=== PATIENT | female | born 1945 | race Caucasian/White ===

== ENCOUNTER 2023-08-03 14:31 | Emergency (ER) | payer MEDICARE ==
[~2023-08-03] VITALS: Ht 167.6 cm; Wt 58.2 kg
[~2023-08-03 14:31] MED LIST: APIX5TAB3 PO; DILT-91 PO; NO HOME MEDS
[2023-08-03 15:07] LABS: BASOPHILS # (AUTO) 0.1 X10'3 (0-0.2); BASOPHILS % (AUTO) 1.1 % (0-1); EOSINOPHILS % (AUTO) 0.8 % (0-6); HEMATOCRIT 41.3 % (35.0-45.0); HEMOGLOBIN 13.4 g/dl (12.0-16.0); LYMPHOCYTES # (AUTO) 1.2 X10'3 (1.1-4.8); LYMPHOCYTES % (AUTO) 23.4 % (21-51); MEAN CORPUSCULAR HEMOGLOBIN 29.9 PG (27.0-31.0); MEAN CORPUSCULAR HGB CONC 32.5 g/dL (33.0-36.5); MEAN PLATELET VOLUME 9.6 FL (7.4-10.4); MONOCYTES # (AUTO) 0.6 X10'3 (0-0.9); MONOCYTES % (AUTO) 11.9 % (2-12); NEUTROPHILS # (AUTO) 3.3 X10'3 (1.8-7.7); NEUTROPHILS % (AUTO) 62.8 % (42-75); PLATELET COUNT 185 X10'3 (140-440); RED BLOOD COUNT 4.48 X10'6 (4.20-5.60); WHITE BLOOD COUNT 5.2 X10'3 (4.5-11.0)
[2023-08-03 15:20] LABS: ALBUMIN 3.6 G/DL (3.4-5.0); ANION GAP 8 (8-16); BLOOD UREA NITROGEN 28 MG/DL (7-18); BUN/CREATININE RATIO 24.8 (10.0-20.0); CALCIUM 9.1 MG/DL (8.5-10.1); CHLORIDE 101 MMOL/L (99-107); CREATININE 1.13 MG/DL (0.40-0.90); GLUCOSE 97 MG/DL (70-104); POTASSIUM 4.6 MMOL/L (3.5-5.1); PRO BRAIN NATRIURETIC PEPTIDE 5456 PG/ML (0-450); SODIUM 138 MMOL/L (135-145); TOTAL CARBON DIOXIDE 29.1 MMOL/L (24-32); eCRCL 37 ML/MIN; eGFR 46 ML/MIN
[2023-08-03] MEDS ORDERED: diltiazem 5mg/ml 5ml inj. IV ONE (15:20)
[2023-08-03] MEDS: ketamine 50mg/5ml syringe IV ONE (16:41)
[2023-08-03] MEDS: propofol 10mg/ml 20ml vial IV ONE (16:41)
[2023-08-03 18:44] VITALS: BP 109/65; PULSE 50; RESP 19; TEMP 97.8; O2SAT 90
== END 2023-08-03 18:48 | disposition home or self-care (01) ==
LOC: ER 14:31
DX: I48.20 Chronic atrial fibrillation, unspecified (principal)
CPT/HCPCS: 36415; 71045; 80048; 83880; 84484; 85025; 92960; 93005; 99285; J7030; A4620

== ENCOUNTER 2023-09-03 12:05 | Inpatient (IN) | payer MEDICARE ==
[~2023-09-03] VITALS: Ht 165.1 cm; Wt 58.2 kg
[2023-09-03] VITALS (12 sets, daily range): BP systolic 115–146; BP diastolic 73–91; PULSE 71–103; RESP 14–19; TEMP 98–98.6; O2SAT 95–100
[2023-09-03 12:26] LABS: EOSINOPHILS # (AUTO) 0.1 X10'3 (0-0.9); EOSINOPHILS % (AUTO) 2.8 % (0-6); HEMATOCRIT 39.9 % (35.0-45.0); HEMOGLOBIN 13.1 g/dl (12.0-16.0); LYMPHOCYTES % (AUTO) 21.5 % (21-51); MEAN CORPUSCULAR HEMOGLOBIN 29.7 PG (27.0-31.0); MEAN CORPUSCULAR HGB CONC 32.7 g/dL (33.0-36.5); MEAN CORPUSCULAR VOLUME 90.7 FL (78-98); MONOCYTES # (AUTO) 0.5 X10'3 (0-0.9); MONOCYTES % (AUTO) 9.6 % (2-12); NEUTROPHILS # (AUTO) 3.1 X10'3 (1.8-7.7); NEUTROPHILS % (AUTO) 65.1 % (42-75); PLATELET COUNT 187 X10'3 (140-440); RED CELL DISTRIBUTION WIDTH 14.3 % (11.5-14.5); WHITE BLOOD COUNT 4.8 X10'3 (4.5-11.0)
[2023-09-03] MEDS ORDERED: amiodarone in dextrose, iso-osm 150mg/100ml bag IV ONE (12:35)
[2023-09-03] MEDS: metoprolol tartrate 1mg/ml inj IV ONE (12:42)
[2023-09-03] MEDS: amiodarone/D5 360MG/200ML BAG 200 ML IV SCH (12:47)
[2023-09-03] MEDS: amiodarone 150mg/dext, iso-os 100 ML IV ONE (12:52)
[2023-09-03 13:04] LABS: ALBUMIN 3.4 G/DL (3.4-5.0); ANION GAP 6 (8-16); BLOOD UREA NITROGEN 18 MG/DL (7-18); BUN/CREATININE RATIO 22.5 (10.0-20.0); CALCIUM 8.7 MG/DL (8.5-10.1); CHLORIDE 104 MMOL/L (99-107); GLUCOSE 113 MG/DL (70-104); PRO BRAIN NATRIURETIC PEPTIDE 2809 PG/ML (0-450); SODIUM 140 MMOL/L (135-145); THYROID STIMULATING HORMONE 2.05 ulU/ml (0.34-4.50); TOTAL CARBON DIOXIDE 29.8 MMOL/L (24-32); eCRCL 51 ML/MIN; eGFR 69 ML/MIN
[2023-09-03 13:05] LABS: POTASSIUM 4.9 MMOL/L (3.5-5.1)
[2023-09-03] MEDS ORDERED: APIX5TAB3 PO (13:23)
[2023-09-03] MEDS ORDERED: METO-477 PO (13:23)
[2023-09-03] MEDS: metoprolol tartrate 50mg tablet PO SCH ×2 (14:07→20:22)
[2023-09-03] MEDS ORDERED: potassium Cl 20 mEq SR tablet PO PRN ×2 (14:55)
[2023-09-03] MEDS ORDERED: acetaminophen 325mg tablet PO PRN ×2 (14:55)
[2023-09-03] MEDS ORDERED: HYDROcodone/acetaminophen 5mg/325mg tablet PO PRN (14:55)
[2023-09-03] MEDS ORDERED: ondansetron/PF 4mg/2ml inj IV PRN (14:55)
[2023-09-03] MEDS ORDERED: potassium Cl 40MEQ/1/2NS 520ml 520 ML IV PRN (14:55)
[2023-09-03] MEDS ORDERED: bisacodyl 10mg suppository rectal RC PRN (14:55)
[2023-09-03] MEDS ORDERED: magnesium 4gm in 100ml NS 100 ML IV PRN (14:55)
[2023-09-03] MEDS ORDERED: HYDROmorphone/PF 0.2 MG/ML SYRINGE IV PRN (14:55)
[2023-09-03] MEDS ORDERED: HYDROcodone/acetaminophen 10/325mg tab PO PRN (14:55)
[2023-09-03] MEDS ORDERED: HYDROmorphone inj. 0.5 MG/0.5 ML DISP.SYRIN IV PRN (14:55)
[2023-09-03] MEDS ORDERED: magnesium 2GM in 50ml NS 50 ML IV PRN (14:55)
[2023-09-03 15:25] LABS: APTT 27 SECONDS (22-32); INR 1.1 INR; PROTHROMBIN TIME 12.2 SECONDS (9.0-12.0)
[2023-09-03 15:30] LABS: MAGNESIUM 2.1 MG/DL (1.5-2.4)
[2023-09-03] MEDS: PERFLUTREN PROTEIN-A MICROSPHR (Optison) 0.22 MG/ML 3ML VIAL IV ONE (16:05)
[2023-09-03] MEDS: docusate sod 100mg capsule PO SCH (20:00)
[2023-09-03] MEDS: K and/or MAG REPLACEMENT MC SCH (20:00)
[2023-09-03] MEDS: apixaban 5mg tablet PO SCH (20:21)
[2023-09-04] VITALS (13 sets, daily range): BP systolic 117–141; BP diastolic 70–94; PULSE 10–114; RESP 12–15; TEMP 96.8–98.2; O2SAT 96–97
[2023-09-04 05:46] LABS: BASOPHILS % (AUTO) 0.9 % (0-1); EOSINOPHILS # (AUTO) 0.1 X10'3 (0-0.9); EOSINOPHILS % (AUTO) 2.7 % (0-6); HEMOGLOBIN 12.8 g/dl (12.0-16.0); LYMPHOCYTES # (AUTO) 0.9 X10'3 (1.1-4.8); LYMPHOCYTES % (AUTO) 21.8 % (21-51); MEAN CORPUSCULAR HEMOGLOBIN 30.4 PG (27.0-31.0); MEAN CORPUSCULAR HGB CONC 33.7 g/dL (33.0-36.5); MEAN CORPUSCULAR VOLUME 90.2 FL (78-98); MEAN PLATELET VOLUME 8.9 FL (7.4-10.4); MONOCYTES # (AUTO) 0.5 X10'3 (0-0.9); MONOCYTES % (AUTO) 11.8 % (2-12); NEUTROPHILS # (AUTO) 2.6 X10'3 (1.8-7.7); NEUTROPHILS % (AUTO) 62.8 % (42-75); PLATELET COUNT 168 X10'3 (140-440); RED BLOOD COUNT 4.21 X10'6 (4.20-5.60); RED CELL DISTRIBUTION WIDTH 14.1 % (11.5-14.5); WHITE BLOOD COUNT 4.2 X10'3 (4.5-11.0)
[2023-09-04 06:38] LABS: ALANINE AMINOTRANSFERASE 38 U/L (12-78); ALBUMIN 2.9 G/DL (3.4-5.0); ALBUMIN/GLOBULIN RATIO 0.9 (1.1-1.5); ALKALINE PHOSPHATASE 87 IU/L (46-116); ANION GAP 7 (8-16); ASPARTATE AMINO TRANSFERASE 17 U/L (10-37); BILIRUBIN,TOTAL 0.9 MG/DL (0.1-1.0); BLOOD UREA NITROGEN 13 MG/DL (7-18); BUN/CREATININE RATIO 15.1 (10.0-20.0); CALCIUM 8.8 MG/DL (8.5-10.1); CHLORIDE 107 MMOL/L (99-107); CREATININE 0.86 MG/DL (0.40-0.90); GLUCOSE 97 MG/DL (70-104); MAGNESIUM 2.3 MG/DL (1.5-2.4); POTASSIUM 4.6 MMOL/L (3.5-5.1); SODIUM 142 MMOL/L (135-145); TOTAL CARBON DIOXIDE 27.8 MMOL/L (24-32); TOTAL PROTEIN 6.2 G/DL (6.4-8.2); eCRCL 48 ML/MIN; eGFR 64 ML/MIN
[2023-09-04] MEDS: amiodarone 200mg tablet PO SCH (10:05)
[2023-09-04] MEDS ORDERED: AMI200T PO (11:31)
== END 2023-09-04 13:20 | disposition home or self-care (01) | DRG 189 ==
LOC: ER 12:05 → ED HOLD 15:05 → PCU 3S 17:11
PROVIDERS: ADMIT Family Medicine; ATTEND Family Medicine
PROC: 5A09357 Assistance with Respiratory Ventilation, Less than 24 Consecutive Hours, Continuous Positive Airway Pressure (ICD-10-PCS; principal; 2023-09-04)
DX: J96.00 Acute respiratory failure, unspecified whether with hypoxia or hypercapnia (principal); Q21.12 Patent foramen ovale; I48.91 Unspecified atrial fibrillation; Z79.01 Long term (current) use of anticoagulants; Z82.0 Family history of epilepsy and other diseases of the nervous system; Z83.3 Family history of diabetes mellitus
CPT/HCPCS: 36415; 71045; 80048; 80053; 83735; 83880; 84443; 84484; 85025; 85610; 85730; 87081; 93005; 93306; 96374; 99285; G0378; J0282; J3490; J7030